=== PATIENT | male | born 1950 | race Caucasian/White ===

== ENCOUNTER → 2019-04-18 | Outpatient (CLI) | payer MEDICARE, OTHER ==
[~2019-04-18] MED LIST: COZAAR 25 MG TA25 M2; CRESTOR5 MG; GLUCOPHAGE500 MG; MULTI VITAMIN1 EACH; NORCO 5-325 TA1 EACH PO
== END ==
LOC: M.RAD 10:48
DX: M47.816 Spondylosis without myelopathy or radiculopathy, lumbar region (principal); G89.29 Other chronic pain

== ENCOUNTER → 2019-09-07 | Outpatient (CLI) | payer OTHER | LOC: M.RAD 09:38 | PROVIDERS: ATTEND Internal Medicine | DX: M19.011 Primary osteoarthritis, right shoulder (principal); M25.511 Pain in right shoulder; G89.29 Other chronic pain ==